=== PATIENT | female | born 1990 | race Two or more races ===

== ENCOUNTER 2020-03-15 09:02 | Emergency (ER) | payer SELFPAY ==
[2020-03-15 09:11] VITALS: TEMP 97.8; BMI 28.7
--- NOTE | 2020-03-15 09:21 | PDOC ---
History of Present Illness - General Chief Complaint: Nausea Stated Complaint: LIGHTHEADED/DIZZINESS Time Seen by Provider: 03/15/20 09:21 Past History - Medical History Allergies/Adverse Reactions: Allergies Allergy/AdvReac Type Severity Reaction Status Date / Time No Known Allergies Allergy Verified 03/15/20 09:06 COPD: No Seizures: Yes - Reproductive History Is Patient Now?: No - Psycho-Social/Smoking History Smoking History: Never smoked Have you smoked in the past 12 months: No - Substance Abuse Hx (Audit-C & DAST Scrn) How often the patient has a drink containing alcohol: Never Score: In Men: 4 or > Positive; In Women: 3 or > Positive: 0 Screen Result (Pos requires Nsg. Audit-10AR): Negative In the last yr the pt used illegal drug/Rx for NonMed reason: No Score: Yes response is considered Positive: 0 Screen Result (Positive result requires Nsg. DAST-10): Negative *Physical Exam - Vital Signs Last Vital Signs Temp Pulse Resp BP Pulse Ox 97.8 F 74 16 107/64 100 03/15/20 09:06 03/15/20 09:06 03/15/20 09:06 03/15/20 09:06 03/15/20 09:06
[2020-03-15] MEDS ORDERED: ONDANSETRON 4 MG/2 ML VIAL IVPUSH ONE (10:13)
[2020-03-15] MEDS ORDERED: SODIUM CHLORIDE 1,000 ML IV STA ×2 (10:13→11:33)
--- NOTE | 2020-03-15 10:14 | PDOC ---
History of Present Illness - General History Source: Patient Exam Limitations: No Limitations <Karla Nichole - Last Filed: 03/15/20 12:10> <Amee Ferguson - Last Filed: 03/16/20 09:46> - General Chief Complaint: Nausea Stated Complaint: LIGHTHEADED/DIZZINESS Time Seen by Provider: 03/15/20 09:21 Past History - Travel History Traveled outside of the country in the last 30 days: No Close contact w/someone who was outside of country & ill: No - Medical History COPD: No Seizures: Yes - Reproductive History Is Patient Now?: No - Psycho-Social/Smoking History Smoking History: Never smoked Have you smoked in the past 12 months: No - Substance Abuse Hx (Audit-C & DAST Scrn) How often the patient has a drink containing alcohol: Never Score: In Men: 4 or > Positive; In Women: 3 or > Positive: 0 Screen Result (Pos requires Nsg. Audit-10AR): Negative In the last yr the pt used illegal drug/Rx for NonMed reason: No Score: Yes response is considered Positive: 0 Screen Result (Positive result requires Nsg. DAST-10): Negative <Karla Nichole - Last Filed: 03/15/20 12:10> <Amee Ferguson - Last Filed: 03/16/20 09:46> - Medical History Allergies/Adverse Reactions: Allergies Allergy/AdvReac Type Severity Reaction Status Date / Time No Known Allergies Allergy Verified 03/15/20 09:06 Home Medications: Ambulatory Orders NK [No Known Home Medication] 03/15/20 Review of Systems - Review of Systems Able to Perform ROS?: Yes Comments:: 03/15/20 10:08 CONSTITUTIONAL: Absent: fever, chills, diaphoresis, generalized weakness, malaise, loss of appetite HEENT: Absent: rhinorrhea, nasal congestion, throat pain, throat swelling, difficulty swallowing, mouth swelling, ear pain, eye pain, visual Changes CARDIOVASCULAR: Present: LOC, lightheaded Absent: chest pain, palpitations, irregular heart rate, peripheral edema RESPIRATORY: Absent: cough, shortness of breath, dyspnea with exertion, orthopnea, wheezing, stridor, hemoptysis GASTROINTESTINAL: Present: nausea Absent: abdominal pain, abdominal distension, vomiting, diarrhea, constipation, melena, hematochezia GENITOURINARY: Absent: dysuria, frequency, urgency, hesitancy, hematuria, flank pain, genital pain MUSCULOSKELETAL: Absent: myalgia, arthralgia, joint swelling SKIN: Absent: rash, itching, pallor HEMATOLOGIC/IMMUNOLOGIC: Absent: easy bleeding, easy bruising, lymphadenopathy, frequent infections ENDOCRINE: Absent: unexplained weight gain, unexplained weight loss, heat intolerance, cold intolerance NEUROLOGIC: Absent: headache, focal weakness or paresthesias, dizziness, unsteady gait, seizure, mental status changes, bladder or bowel incontinence PSYCHIATRIC: Absent: anxiety, depression, suicidal or homicidal ideation, hallucinations. Is the patient limited [place]ic proficient: No <Karla Nichole - Last Filed: 03/15/20 12:10> *Physical Exam - Vital Signs Last Vital Signs Temp Pulse Resp BP Pulse Ox 97.8 F 74 16 107/64 100 03/15/20 09:06 03/15/20 09:06 03/15/20 09:06 03/15/20 09:06 03/15/20 09:06 - Physical Exam 03/15/20 10:10 GENERAL: Well developed, well nourished. Awake and alert. No acute distress. HEENT: Normocephalic, atraumatic. PERRLA, EOMI. No conjunctival pallor. Sclera are non- icteric. Moist mucous membranes. Oropharynx is clear. NECK: Supple. Full ROM. No JVD. Carotid pulses 2+ and symmetric, without bruits. No thyromegaly. No lymphadenopathy. CARDIOVASCULAR: Regular rate and rhythm. No murmurs, rubs, or gallops. Distal pulses are 2+ and symmetric. PULMONARY: No evidence of respiratory distress. Lungs clear to auscultation bilaterally. No wheezing, rales or rhonchi. ABDOMINAL: Soft. Non-tender. Non-distended. No rebound or guarding. No organomegaly. Normoactive bowel sounds. MUSCULOSKELETAL Normal range of motion at all joints. No bony deformities or tenderness. No CVA tenderness. EXTREMITIES: No cyanosis. No clubbing. No edema. No calf tenderness. SKIN: Warm and dry. Normal capillary refill. No rashes. No jaundice. NEUROLOGICAL: Alert, awake, appropriate. Cranial nerves 2-12 intact. No deficits to light touch and temperature in face, upper extremities and lower extremities. No motor deficits in the in face, upper extremities and lower extremities. Normoreflexic in the upper and lower extremities. Normal speech. Toes are down-going bilaterally. Gait is normal without ataxia. PSYCHIATRIC: Cooperative. Good eye contact. Appropriate mood and affect. <Karla Nichole - Last Filed: 03/15/20 12:10> - Vital Signs Last Vital Signs Temp Pulse Resp BP Pulse Ox 97.8 F 67 16 90/54 L 100 03/15/20 09:06 03/15/20 11:07 03/15/20 09:06 03/15/20 11:07 03/15/20 09:06 <Amee Ferguson - Last Filed: 03/16/20 09:46> Heart Score/ECG Review - History History: Slightly suspicious - Electrocardiogram EKG: Non specific repolarization disturbance - Age Age: </= 47 - Risk Factors Based on the list above the patient has:: No risk factors known - Troponin Troponin: </= normal limit - Score Heart Score - Total: 1 <StefgiancarloKarla - Last Filed: 03/15/20 12:10> ED Treatment Course - LABORATORY CBC & Chemistry Diagram: 03/15/20 10:21 03/15/20 10:21 <StefgiancarloKarla - Last Filed: 03/15/20 12:10> - LABORATORY CBC & Chemistry Diagram: 03/15/20 10:21 03/15/20 10:21 - ADDITIONAL ORDERS Additional order review: 03/15/20 10:21 Urine Culture - Final Urine - Urine Clean Catch Lactose Fermenting Neg Bacilli 03/15/20 10:21 RBC 4.43 MCV 86.1 MCHC 32.8 RDW 13.4 MPV 7.9 Neutrophils % 46.0 Lymphocytes % 33.8 Monocytes % 8.8 Eosinophils % 10.9 H Basophils % 0.5 - Medications Given in the ED: ED Medications Discontinued Medications Generic Name Dose Route Start Last Admin Trade Name Freq PRN Reason Stop Dose Admin Sodium Chloride 1,000 mls @ 1,000 mls/hr 03/15/20 10:13 03/15/20 10:34 Normal Saline - IV 03/15/20 11:12 1,000 mls/hr ASDIR STA Administration Sodium Chloride 1,000 mls @ 1,000 mls/hr 10/05/20 11:33 03/15/20 11:49 Normal Saline - IV 03/15/20 12:32 1,000 mls/hr ASDIR STA Administration Ondansetron HCl 4 mg 03/15/20 10:13 03/15/20 10:34 Zofran Injection IVPUSH 03/15/20 10:14 4 mg ONCE ONE Administration <Amee Ferguson - Last Filed: 03/16/20 09:46> Medical Decision Making - Medical Decision Making 03/15/20 10:10 Patient is a 29-year-old female with past medical history of syncopal episodes, presents to the ER today after having what is reported as a syncopal episode on Sunday. She states she got very hot and lightheaded and then passed out. She states that this happens to her approximately once a year. She states this happened to her last year when she was in [facility] for which she reports a negative cardiac and neurologic work-up. She states that now she feels lightheaded and nauseous. She went to urgent care and told her she had an abnormal EKG and to come to the ER for evaluation. Denies chest pain, difficult y breathing, shortness of breath, fevers, COVID exposure, vomiting, diarrhea and urinary symptoms. She does endorse getting light headed going from sitting to standing. A/P: Lightheadedness/syncopal episode On exam patient is awake alert and oriented x3, answering all questions. Regular rate and rhythm, S1-S2 present no murmurs rubs or gallops. Lungs clear to auscultation bilaterally with equal breath sounds at the bases abdomen soft nontender without rebound guarding or tenderness. Will obtain EKG, basic labs, give IV fluids and antinausea medicine, orthostatics Differential diagnosis includes but is not limited to electrolyte abnormality, orthostatic hypotension/pots, ACS however given patient's age and lack of family history unlikely. 03/15/20 10:14 EKG: Rate, 66 bpm, normal sinus rhythm. QTC 417, normal axis. Inverted T waves in V3, flattened V4 through V6. When compared to EKG done on Sunday in urgent care, no change. No evidence of brugada syndrome, QT prolongation 03/15/20 12:11 No abnormalities within patient's blood work. Electrolytes are within normal limits, no white count. Troponin negative, TSH within normal limits Heart score of 1 for flattened T waves. The patient is not orthostatic as blood pressure increases as she stands up. We will refer patient to cardiology and neurology for further management of her symptoms. Discharge home I discussed the physical exam findings, ancillary test results and final diagnoses with the patient. I answered all of the patient's questions. The patient was satisfied with the care received and felt comfortable with the discharge plan and treatment plan. The Patient agrees to follow up with the primary care physician/specialist within 24-72 hours. Return precautions were given. <Karla Nichole - Last Filed: 03/15/20 12:10> - Medical Decision Making I reviewed the case with the mid-level practitioner and agree with the mid-level practitioner's assessment, diagnosis and disposition. <Amee Ferguson - Last Filed: 03/16/20 09:46> Discharge - Discharge Information Problems reviewed: Yes - Admission No <Karla Nichole - Last Filed: 03/15/20 12:10> <Amee Ferguson - Last Filed: 03/16/20 09:46> - Discharge Information Clinical Impression/Diagnosis: Lightheaded Condition: Stable Disposition: HOME - Follow up/Referral Referrals: Ran Ruff MD [Staff Physician] - Luis Mcfarlane MD [Staff Physician] - - Patient Discharge Instructions Patient Printed Discharge Instructions: DI for Dizziness-Nonvertigo Additional Instructions: You were seen for your lightheadedness today. Your lab work was normal. You need to follow-up with a primary care doctor, driver license technician and neurologist regarding your symptoms within the next week. Referrals have been provided to you. Please drink plenty of fluids and eat foods high in salt to help with your lightheadedness and dizziness. Return to the ER for increased dizziness, you have another syncopal episode, palpitations, chest pain if you have any changes in your symptoms. - Post Discharge Activity Work/Back to School Note: Back to Work
[2020-03-15 10:51] LABS: BASO % 0.5 % (0-2.0); EOS % 10.9 % (0-4.5); HEMATOCRIT 38.2 % (32.4-45.2); HEMOGLOBIN 12.5 GM/dL (10.7-15.3); LYMPH % 33.8 % (8-40); MCH 28.2 pg (25.7-33.7); MCHC 32.8 g/dl (32.0-36.0); MEAN CELL VOLUME 86.1 fl (80-96); MEAN PLT VOLUME 7.9 fl (7.5-11.1); MONO % 8.8 % (3.8-10.2); PLATELET COUNT 268 K/MM3 (134-434); RBC 4.43 M/mm3 (3.60-5.2); RDW 13.4 % (11.6-15.6); WHITE BLOOD COUNT 8.2 K/mm3 (4.0-10.0)
[2020-03-15 10:55] LABS: PH,URINE 7.5 (5.0-8.0); URINE APPEARANCE CLEAR; URINE BILIRUBIN NEGATIVE (NEGATIVE); URINE COLOR YELLOW; URINE GLUCOSE (UA) NEGATIVE (NEGATIVE); URINE KETONE NEGATIVE (NEGATIVE); URINE LEUK ESTERASE NEGATIVE (NEGATIVE); URINE NITRITE NEGATIVE (NEGATIVE); URINE PROTEIN NEGATIVE (NEGATIVE); URINE UROBILINOGEN 0.2 mg/dL (0.2-1.0)
[2020-03-15 10:56] LABS: INR 1.03 (0.83-1.09); PROTHROMBIN TIME (PATIENT) 12.1 SEC (9.7-13.0)
[2020-03-15 10:57] LABS: HCG,QUALITATIVE URINE Negative
[2020-03-15 11:08] VITALS: BP 90/54; PULSE 67
[2020-03-15 11:17] LABS: ALBUMIN 3.6 g/dl (3.4-5.0); ANION GAP 5 MMOL/L (8-16); BLOOD UREA NITROGEN 13.2 mg/dL (7-18); CALCIUM 8.8 mg/dL (8.5-10.1); CHLORIDE 108 mmol/L (98-107); CO2 28 mmol/L (21-32); GLUCOSE,RANDOM 85 mg/dL (74-106); POTASSIUM 4.3 mmol/L (3.5-5.1); SODIUM 141 mmol/L (136-145)
[2020-03-15 11:26] LABS: ALK PHOS 101 U/L (45-117); BILIRUBIN,TOTAL 0.3 mg/dL (0.2-1); CREATININE 0.8 mg/dL (0.55-1.3); SGOT/AST 15 U/L (15-37); SGPT/ALT 19 U/L (13-61); TOT PROT 7.2 g/dl (6.4-8.2)
--- NOTE | 2020-03-15 17:00 | EKG ---
Test Reason : Blood Pressure : / mmHG Vent. Rate : 066 BPM Atrial Rate : 066 BPM P-R Int : 132 ms QRS Dur : 076 ms QT Int : 398 ms P-R-T Axes : 044 001 -32 degrees QTc Int : 417 ms NORMAL SINUS RHYTHM T WAVE ABNORMALITY, CONSIDER INFERIOR ISCHEMIA ABNORMAL ECG NO PREVIOUS ECGS AVAILABLE Confirmed by DYLAN HERNANDEZ MD ([id number]) on 03/15/2020 4:59:49 PM Referred By: Confirmed By:DYLAN HERNANDEZ MD
== END 2020-03-15 12:51 | disposition home or self-care (01) ==
LOC: JER 09:02
PROC: 3E033GC Introduction of Other Therapeutic Substance into Peripheral Vein, Percutaneous Approach (ICD-10-PCS; principal; 2020-03-15)
PROC: 3E0337Z Introduction of Electrolytic and Water Balance Substance into Peripheral Vein, Percutaneous Approach (ICD-10-PCS; 2020-03-15)
DX: R42 Dizziness and giddiness (principal)
CPT/HCPCS: 36415; 80053; 81003; 82550; 82553; 84443; 84484; 84703; 85025; 85610; 87086; 93005; 93010; 99284-25

== ENCOUNTER 2021-08-30 09:13 | Emergency (ER) | payer OTHER ==
[2021-08-30 09:29] VITALS: BP 109/74; PULSE 80; TEMP 97.9; BMI 29.9
== END 2021-08-30 12:06 | disposition home or self-care (01) ==
LOC: JER 09:13
DX: H60.501 Unspecified acute noninfective otitis externa, right ear (principal)
CPT/HCPCS: 99282-25